=== PATIENT | male | born 1940 | race Caucasian/White ===

== ENCOUNTER 2017-12-01 12:32 | Day surgery (SDC) | payer OTHER, MEDICARE ==
[~2017-12-01] VITALS: Ht 177.8 cm; Wt 99.8 kg
[~2017-12-01 12:32] MED LIST: AMLODIPINE BESY10 MG PO; BACTRIM,SEPT1 TABLET PO; CIALIS20 MG PO; EYE HEALTH ADU1 EACH PO; JOINT RELIEF PO; MULTIVITAMIN1 EAC2 PO; NAFTIN TP; OMEGA-3100 MG PO; PERCOCET 5/31 TABLET PO; POTASSIUM CITR10 MEQ PO; TENORMIN25 MG PO; VITAMIN B122500 MCG PO; ZOFRAN ODT4 MG PO; [UNRECOGNIZED DRUG - OTHER] PO
[2017-12-01 13:07] VITALS: BP 138/71
[2017-12-01] MEDS ORDERED: NORCO 5/3251 TABLET PO (17:33)
[2017-12-01 18:04] VITALS: BP 150/70
[2017-12-01 18:42] VITALS: BP 146/71
== END 2017-12-01 19:00 | disposition home or self-care (01) ==
LOC: SDC 12:32
DX: K40.90 Unilateral inguinal hernia, without obstruction or gangrene, not specified as recurrent (principal); Z85.51 Personal history of malignant neoplasm of bladder; Z86.010 Personal history of colon polyps; M51.36 Other intervertebral disc degeneration, lumbar region; I71.4 Abdominal aortic aneurysm, without rupture; I10 Essential (primary) hypertension; N28.9 Disorder of kidney and ureter, unspecified; C64.2 Malignant neoplasm of left kidney, except renal pelvis; C78.00 Secondary malignant neoplasm of unspecified lung; Z85.828 Personal history of other malignant neoplasm of skin; Z80.0 Family history of malignant neoplasm of digestive organs; Z82.49 Family history of ischemic heart disease and other diseases of the circulatory system; Z88.8 Allergy status to other drugs, medicaments and biological substances; Z91.048 Other nonmedicinal substance allergy status
CPT/HCPCS: C1781; J1100; J1885; J2250; J2405; S0020